=== PATIENT | male | born 1990 | race Caucasian/White ===

== ENCOUNTER 2016-12-29 01:19 | Emergency (ER) | payer BC ==
[~2016-12-29] VITALS: Ht 180.3 cm; Wt 77.1 kg
[2016-12-29 01:25] VITALS: BP 158/101
[2016-12-29] MEDS ORDERED: Ketorolac 30mg Inj IV ONE (02:00)
[2016-12-29 02:27] LABS: BASOPHILS % (AUTO) 1.1 % (0.0-2.0); EOSINOPHILS % (AUTO) 1.7 % (0.0-3.0); LYMPHOCYTES % (AUTO) 20.4 % (20.0-45.0); MEAN CORPUSCULAR HEMOGLOBIN 31.2 PG (27.0-31.0); MEAN CORPUSCULAR VOLUME 89 FL (80-99); MEAN PLATELET VOLUME 5.7 FL (6.5-10.1); MONOCYTES % (AUTO) 6.9 % (1.0-10.0); NEUTROPHILS % (AUTO) 69.9 % (45.0-75.0); PLATELET COUNT 249 K/UL (150-450); RED BLOOD COUNT 5.71 M/UL (4.70-6.10); RED CELL DISTRIBUTION WIDTH 11.1 % (11.6-14.8); WHITE BLOOD COUNT 13.1 K/UL (4.8-10.8)
[2016-12-29 02:28] LABS: APPEARANCE,URINE CLEAR; KETONES,URINE NEGATIVE (NEGATIVE); LEUKOCYTE ESTERASE ,URINE NEGATIVE (NEGATIVE); NITRITE,URINE NEGATIVE (NEGATIVE); PH,URINE 7 (4.5-8.0); PROTEIN,URINE NEGATIVE (NEGATIVE); UROBILINOGEN,URINE NORMAL MG/DL (0.0-1.0)
[2016-12-29] MEDS ORDERED: Ertapenem 1 GM in NS 55 ML IV ONE (02:45)
[2016-12-29] MEDS ORDERED: Potassium Chloride 10 MEQ in NS 1000ml 1,000 ML IV SCH (02:45)
[2016-12-29 02:46] LABS: ALANINE AMINOTRANSFERASE 23 U/L (3-41); ALBUMIN/GLOBULIN RATIO 1.6 (1.0-2.7); ANION GAP 14 (5-15); ASPARTATE AMINO TRANSFERASE 18 U/L (5-40); CALCIUM 9.5 mg/dL (8.6-10.2); CARBON DIOXIDE 29 mEQ/L (20-30); CHLORIDE 98 mEQ/L (98-107); CREATININE 1.1 mg/dL (0.7-1.2); GLOMERULAR FILTRATION RATE > 60 mL/min (>60); HEMOLYSIS 17; LIPASE 32 U/L (< 60); POTASSIUM 3.8 mEQ/L (3.4-4.9); SODIUM 141 mEQ/L (135-145); TOTAL PROTEIN 7.8 g/dL (6.6-8.7)
[2016-12-29] MEDS ORDERED: Ertapenem (INVanz) Inj ONE (02:52)
--- NOTE | 2016-12-29 02:55 | Emergency Room Report ---
History of Present Illness General Chief Complaint: Abdominal Pain Source: Patient Present Illness HPI This is a 26-year-old male with no significant past medical history. He said his been currently treated for Lyme disease with 3 different antibiotics. He only has medicine a week left. He presents with chief complaint abdominal pain for the last 24 hours. Pain is periumbilical. He has nausea but no vomiting. He said he forced himself to eat today. Denies any fever or chills. Worse with movement. Worse with palpation. Denies any other complaint. Allergies: Coded Allergies: No Known Allergies (Unverified , 12/29/16) Patient History Past Medical History: see triage record, old chart reviewed Past Surgical History: none Pertinent Family History: none Social History: Denies: smoking Immunizations: other Reviewed Nursing Documentation: PMH: Agreed, PSxH: Agreed Review of Systems Eye: Denies: blurred vision, eye pain ENT: Denies: ear pain, nose congestion, throat swelling Respiratory: Denies: cough, shortness of breath Cardiovascular: Denies: chest pain, palpitations Gastrointestinal: Reports: abdominal pain, nausea, Denies: diarrhea, vomiting Musculoskeletal: Denies: back pain, joint pain Skin: Denies: rash Neurological: Denies: headache, numbness Endocrine: Denies: increased thirst, increased urine Hematologic/Lymphatic: Denies: easy bruising All Other Systems: negative except mentioned in HPI Physical Exam Vital Signs Date Time Temp Pulse Resp B/P Pulse Ox O2 Delivery O2 Flow Rate FiO2 12/29/16 01:20 98.8 62 18 158/101 95 Room Air vital is with hypertension Sp02 EP Interpretation: reviewed, normal General Appearance: well appearing, no apparent distress, alert Head: normocephalic, atraumatic Eyes: bilateral eye EOMI, bilateral eye PERRL ENT: hearing grossly normal, normal pharynx Neck: full range of motion, supple, no meningismus Respiratory: chest non-tender, lungs clear, normal breath sounds Cardiovascular #1: regular rate, rhythm, no murmur Gastrointestinal: normal bowel sounds, no mass, no organomegaly, no bruit, non- distended, tenderness - Guarding to right lower quadrant Musculoskeletal: back normal, gait/station normal, normal range of motion Neurologic: alert, oriented x3 Psychiatric: mood/affect normal Skin: warm/dry Medical Decision Making Diagnostic Impression: Primary Impression: Appendicitis, acute, with peritonitis ER Course Patient presents with abdominal pain and has appendicitis. He needs to go to the OR. I had already paged Dr. Centeno when patient said that he went to leave AMA. He spoke with his aunt on the phone who told to go to [facility]. I advice against this because I don't know how long he had to wait in the waiting room. I told patient I want him to have at least a dose of antibiotics here. Patient is competent to sign out AMA. He understand the risk of delaying treatment with possible perforation. This will lead to increased mortality and morbidity. He will sign out AGAINST MEDICAL ADVICE. I will give him his labs and CT scan reading. Told patient to have the [facility] call me if he has any question. Lab Results Impression labs with leukocytosis CT/MRI/US Diagnostic Results CT/MRI/US Diagnostic Results : Imaging Test Ordered: CT abdomen and pelvis Impression Read by radiologist. Acute appendicitis with 11 mm appendix Last Vital Signs Date Time Temp Pulse Resp B/P Pulse Ox O2 Delivery O2 Flow Rate FiO2 12/29/16 01:20 98.8 62 18 158/101 95 Room Air Status: improved Disposition: AGAINST MEDICAL ADVICE Condition: Serious Referrals: NOT CHOSEN IPA/,REFERRING (PCP) Additional Instructions: You are signing out AGAINST MEDICAL ADVICE. Your appendix many rupture and this will increase your mobility and mortality. Return if you change your mind. NATALYA DENG M.D. December 29, 2016 02:55
[2016-12-29 03:25] VITALS: BP 151/95
[2016-12-29 03:40] VITALS: BP 151/95
--- NOTE | 2016-12-29 09:55 | Diagnostic Imaging Report ---
Indication: Abdominal pain Technique: Continuous helical transaxial imaging of the abdomen and pelvis was obtained from the lung bases to the pubic symphysis. No intravenous contrast was administered. Coronal 2-D reformats were also obtained. Total Dose length Product (DLP): [address] Dose Index Volume (CTDIvol): 12 mGy Comparison: none Findings: The appendix is moderately distended. There is high density intraluminal appendicolith noted at the base of the appendix. Appendiceal diameter is about 11 mm. The wall is thickened and slightly ill-defined. Findings consistent with acute appendicitis. There is no evidence of rupture. No evidence of abscess. There is trace amount of free fluid within the pelvis noted. No evidence of bowel obstruction. The lung bases are clear. Evaluation of solid organs limited on noncontrast imaging. That said, no gross abnormalities identified. Impression: Acute appendicitis. [facility] has communicated the preliminary results to the Emergency Department. Their findings are largely concordant with this report. The CT scanner at [facility] is accredited by the [employer] and the scans are performed using dose optimization techniques as appropriate to a performed exam including Automatic Exposure control.
== END 2016-12-29 03:36 | disposition left against medical advice (07) ==
LOC: EMR 01:40
DX: K35.3 Acute appendicitis with localized peritonitis (principal); R10.9 Unspecified abdominal pain; R11.0 Nausea; Z53.21 Procedure and treatment not carried out due to patient leaving prior to being seen by health care provider
CPT/HCPCS: 36415; 74176; 80053; 80300; 81003; 83690; 85025; 96374; 96375; 99284; J1335; J1885; J3480